=== PATIENT | female | born 1960 | race Caucasian/White ===

== ENCOUNTER 2020-01-20 16:47 | Emergency (ER) | payer OTHER ==
[~2020-01-20] VITALS: Ht 170.2 cm; Wt 115.2 kg
[~2020-01-20 16:47] MED LIST: AMOX TR-K CLV1 EAC4; AMOXICILLIN500 M1 PO; CIPROFLOXACIN500 M1 PO; ESTRADIOL 1 MG T1 M1; FLUOCINONIDE; GUAIFENESIN1200 MG PO; PEPCID AC20 M1; XANAX 0.5 MG0.5 MG PO
[2020-01-20] MEDS ORDERED: NEURONTIN 300M300 M2 PO (17:06)
[2020-01-20 17:50] LABS: INFLUENZA A ANTIGEN Negative (Negative); INFLUENZA B ANTIGEN Negative (Negative)
[2020-01-20] MEDS ORDERED: ZPAK PO (18:15)
[2020-01-20] MEDS ORDERED: PREDNISONE 20 M20 MG PO (18:15)
[2020-01-20] MEDS ORDERED: ALBUTEROL2.5 MG/31 INH (18:15)
[2020-01-20] MEDS ORDERED: IPRAT-ALBUT 0.5-3 ML INH (18:15)
[2020-01-20] MEDS ORDERED: VIRTUSSIN AC L118 ML PO (18:17)
[2020-01-20 18:40] VITALS: BP 111/66
== END 2020-01-20 18:52 | disposition home or self-care (01) ==
LOC: M.ERS 16:47
PROVIDERS: Physician Assistant
DX: J20.9 Acute bronchitis, unspecified (principal); Z20.828 Contact with and (suspected) exposure to other viral communicable diseases; F17.210 Nicotine dependence, cigarettes, uncomplicated; Z88.1 Allergy status to other antibiotic agents